=== PATIENT | female | born 1955 | race American Indian/Alaskan Native ===

== ENCOUNTER 2017-06-03 11:29 | Emergency (ER) | payer MEDICARE, BC ==
[2017-06-03] MEDS ORDERED: Lidocaine 2% 20 ML MDV INFILT ONE (12:21)
[2017-06-03] MEDS ORDERED: fentaNYL 100 MCG/2 ML SDV IM ONE (12:59)
--- NOTE | 2017-06-03 13:03 | EDM.PDOC ---
ED HPI GENERAL MEDICAL PROBLEM - General Chief Complaint: Laceration Stated Complaint: LACERATION Time Seen by Provider: 06/03/17 12:00 Source of Information: Reports: Patient History Limitations: Reports: No Limitations - History of Present Illness INITIAL COMMENTS - FREE TEXT/NARRATIVE: Stepped backwards and tripped landing on bed frame. C/o pain and bleeding R buttock. Was able to ambulate, has family with her who drives and can watch her. 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 - Related Data Allergies Allergy/AdvReac Type Severity Reaction Status Date / Time morphine AdvReac Nausea and Verified 06/03/17 11:48 Vomiting environmental Allergy Cannot Uncoded 06/03/17 11:48 Remember Home Meds: Home Meds Amitriptyline [Elavil] 50 mg PO BEDTIME 07/08/14 [History] Ascorbic Acid [Vitamin C] 500 mg PO DAILY 07/08/14 [History] Aspirin [Halfprin] 81 mg PO DAILY 07/08/14 [History] Calcium Carb & Citrate/Vit D3 [Calcium + Vitamin D3 Caplet] 1 tab PO DAILY 07/08 [History] Cyanocobalamin (Vitamin B12) [Vitamin B12] 250 mcg PO BID 07/08/14 [History] Ferrous Sulfate 325 mg PO TIDM 07/08/14 [History] Multivitamin with Minerals [Multiple Vitamin] 1 tab PO DAILY 07/08/14 [History] Vitamin B Complex [B Complex] 1 tab PO DAILY 07/08/14 [History] fentaNYL [Duragesic] 50 mcg TD Q72H 07/08/14 [History] oxyCODONE HCl/Acetaminophen [Percocet 10-325 MG] 1 tab PO Q6HR PRN 07/08/14 [ History] traMADol [Ultram] 100 mg PO Q6H PRN 07/08/14 [History] 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: Musculoskeletal History: Reports: Back Pain, Chronic, Osteoarthritis Hematologic History: Reports: Iron Deficiency Other Hematologic History: from bariatric procedure Oncologic (Cancer) History: Reports: Breast Other Oncologic History: 2003, right side with mastectomy - Past Surgical History GI Surgical History: Reports: Bariatric Procedure Other GI Surgeries/Procedures: Bariatric surgery 2003 Musculoskeletal Surgical History: Reports: Other (See Below) Other Musculoskeletal Surgeries/Procedures:: 6 back surgeries, bone chip and discs bulging 2005 last surgery Social & Family History - Tobacco Use Smoking Status *Q: Former Smoker Years of Tobacco use: 5 Used Tobacco, but Quit: Yes Month Tobacco Last Used: 1984 - Caffeine Use Caffeine Use: Reports: Coffee - Alcohol Use Days Per Week of Alcohol Use: 0 - Recreational Drug Use Recreational Drug Use: No ED ROS GENERAL - Review of Systems Review Of Systems: ROS reveals no pertinent complaints other than HPI. ED EXAM, SKIN/RASH Exam: See Below Exam Limited By: No Limitations General Appearance: Alert, WD/WN, Anxious Back Exam: Normal Inspection Extremities: Normal Inspection, Normal Range of Motion, Non-Tender, Normal Capillary Refill Skin: Wound/Incision Comments: triagular laceration over R buttock with tense 10x10 cm hematoma palpable below. Normal hip ROM. No e/o buttock compartment syndrome or deeper injury. ED SKIN PROCEDURES - Laceration/Wound Repair Buttock Lac/Wound length In cm: 2 Appearance: Subcutaneous, Irregular, Clean Distal NVT: Neuro & Vascular Intact Anesthetic Type: Local Local Anesthesia - Lidocaine (Xylocaine): 2% Plain Local Anesthetic Volume: Other (10 ml) Skin Prep: Chlorhexidine (Hibiciens) Exploration/Debridement/Repair: Wound Explored, In a Bloodless Field, Explored to Base, Minimal Debridement, Moderately Undermined, No Foreign Material Found, Multiple Flaps Aligned, Other (skin edges of triagle approx w/ single loose horizontal mattress) Closed with: Sutures Suture Size: 4-0 # of Sutures: 1 Suture Type: Prolene Progress/Comments: copiously irrigated with 120ml NS Course - Vital Signs Last Recorded V/S: Last Vital Signs Temp 36.4 C 06/03/17 11:47 Pulse 88 06/03/17 11:47 Resp 16 06/03/17 11:47 BP 165/92 H 06/03/17 11:47 Pulse Ox 96 06/03/17 11:47 - Orders/Labs/Meds Meds: Medications Discontinued Medications Generic Name Dose Route Start Last Admin Trade Name Freq PRN Reason Stop Dose Admin Acetaminophen 1,000 mg 06/03/17 13:04 06/03/17 13:27 Tylenol Extra Strength PO 06/03/17 13:05 1,000 mg ONETIME ONE Administration Fentanyl 50 mcg 06/03/17 12:59 06/03/17 13:21 Sublimaze IM 06/03/17 13:00 50 mcg ONETIME ONE Administration Lidocaine HCl 20 ml 06/03/17 12:21 06/03/17 13:28 Xylocaine 2% INFILT 06/03/17 12:22 20 ml ONETIME ONE Administration Departure - Departure Time of Disposition: 14:27 Disposition: Home, Self-Care 01 Condition: Good Clinical Impression: Buttock wound, Buttock trauma, Hematoma - Discharge Information Referrals: Katherin Nielsen RN [Primary Care Provider] - Forms: ED Department Discharge Care Plan Goals: Needs close follow up with Dr. Chaney due to risk of infection. Oxycodone 5-10mg q4h cephalexin 500mg qid Acetaminophen 650 mg qid Wash wound with soap and water every day. Return to ED if signs of infection. Call your Physician or Return to Emergency Department if: * Your condition worsens in any way. * You develop fever greater than 100.4. * You have vomitting due to oxycodone or antibiotics * You have pain that is not controlled with medications.
[2017-06-03] MEDS ORDERED: Acetaminophen 500 MG Tab PO ONE (13:04)
[2017-06-03 15:19] VITALS: BP 159/74
== END 2017-06-03 15:20 | disposition home or self-care (01) ==
LOC: JP.ED 11:29
DX: S31.811A Laceration without foreign body of right buttock, initial encounter (principal); M19.90 Unspecified osteoarthritis, unspecified site; Z98.890 Other specified postprocedural states; Z98.84 Bariatric surgery status; Z87.891 Personal history of nicotine dependence; Z79.899 Other long term (current) drug therapy; Z88.5 Allergy status to narcotic agent; Z91.09 Other allergy status, other than to drugs and biological substances; W22.8XXA Striking against or struck by other objects, initial encounter
CPT/HCPCS: 12001; 99283; A9270; J3010

== ENCOUNTER → 2017-06-15 | Day surgery (SDC) | payer MEDICARE, BC ==
[~2017-06-15] MED LIST: Acetaminophen/HYDROcodone 325-5 MG Tab PO PRN; Bupivacaine 0.5% 50 ML MDV ONE; Ketorolac 60 MG/2 ML SDV ONE; Lidocaine 1% with EPINEPHrine 1:100,000 50 ML MDV ONE; Midazolam 1 MG/ML 2 ML SDV ONE; Propofol 200 MG/20 ML SDV ONE; Sodium Chloride 0.9% 1,000 ML IV SCH; ceFAZolin 2 GM in Sodium Chloride 0.9% 50 ML IV ONE; fentaNYL 100 MCG/2 ML SDV ONE
[2017-06-15 15:52] VITALS: BP 146/80
--- NOTE | 2017-06-16 09:11 | OR ---
DATE OF PROCEDURE: 06/15/2017 PROCEDURE: 1. Hematoma evacuation, left buttock. 2. Debridement of wound ([id number]), 2 cm x 1.8 cm with a depth of 9.5 cm. COMPLICATIONS: None. RESEARCH AND DEVELOPMENT ENGINEER: None. ANESTHESIA: MAC/local. RISKS: Risks, benefits, alternatives, and limitations including, but not limited to infection, bleeding, injury to musculoskeletal structures were explained to the patient and they wished to proceed. PROCEDURE IN DETAIL: The patient was placed in lateral decubitus position. The previous area that was sutured was opened and debrided with a 15 blade. The hematoma was then entered and a large amount of old clot was able to be suctioned from the site. This was thoroughly irrigated. After the clot was removed, this was packed with quarter-inch iodoform gauze. The patient tolerated the procedure well. Carlos Aponte MD /[id number]
== END ==
LOC: JP.SDS 11:26
PROVIDERS: ATTEND Surgery
DX: S30.0XXA Contusion of lower back and pelvis, initial encounter (principal); S31.819S Unspecified open wound of right buttock, sequela
CPT/HCPCS: 10140; 11042; 36415; 80048; 85027; A9270; J0690; J1885; J2250; J2704; J3010; J7040; J7050; 76881-26-RT; 76881-RT

== ENCOUNTER 2019-02-04 15:04 | Day surgery (SDC) | payer BC, MEDICARE ==
[2019-02-04] MEDS ORDERED: fentaNYL 100 MCG/2 ML SDV IM ONE (15:36)
--- NOTE | 2019-02-04 15:39 | EDM.PDOC ---
ED HPI GENERAL MEDICAL PROBLEM - General Chief Complaint: Upper Extremity Injury/Pain Stated Complaint: RIGHT ARM BROKEN Time Seen by Provider: 02/04/19 15:30 Source of Information: Reports: Patient, Family, RN Notes Reviewed History Limitations: Reports: No Limitations - History of Present Illness INITIAL COMMENTS - FREE TEXT/NARRATIVE: 63-year-old female presents emergency department today following a fall on outstretched hand just prior to presentation. She has obvious deformity and is in significant pain right wrist - Related Data Allergies Allergy/AdvReac Type Severity Reaction Status Date / Time morphine AdvReac Nausea and Verified 02/04/19 15:55 Vomiting environmental Allergy Cannot Uncoded 02/04/19 15:55 Remember Home Meds: Home Meds Amitriptyline [Elavil] 50 mg PO BEDTIME 07/08/14 [History] Ascorbic Acid [Vitamin C] 500 mg PO DAILY 07/08/14 [History] Aspirin [Halfprin] 81 mg PO DAILY 07/08/14 [History] Calcium Carb & Citrate/Vit D3 [Calcium + Vitamin D3 Caplet] 1 tab PO DAILY 07/08 [History] Cyanocobalamin (Vitamin B12) [Vitamin B12] 250 mcg PO BID 07/08/14 [History] Ferrous Sulfate 325 mg PO TIDM 07/08/14 [History] Multivitamin with Minerals [Multiple Vitamin] 1 tab PO DAILY 07/08/14 [History] Vitamin B Complex [B Complex] 1 tab PO DAILY 07/08/14 [History] Celecoxib 100 mg PO BID 02/04/19 [History] Lisinopril 10 mg PO DAILY 02/04/19 [History] Past Medical History HEENT History: Reports: Impaired Vision 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: Reports: Musculoskeletal History: Reports: Back Pain, Chronic, Osteoarthritis Hematologic History: Reports: Iron Deficiency Other Hematologic History: from bariatric procedure Oncologic (Cancer) History: Reports: Breast Other Oncologic History: 2003, right side with mastectomy - Infectious Disease History Infectious Disease History: Reports: Chicken Pox, Measles, Mumps - Past Surgical History HEENT Surgical History: Reports: None GI Surgical History: Reports: Bariatric Procedure Other GI Surgeries/Procedures: Bariatric surgery 2004 Musculoskeletal Surgical History: Reports: Other (See Below) Other Musculoskeletal Surgeries/Procedures:: 6 back surgeries, bone chip and discs bulging 2004 last surgery Social & Family History - Caffeine Use Caffeine Use: Reports: Coffee, Tea Review of Systems - Review of Systems Review Of Systems: See Below Musculoskeletal: Reports: Joint Pain (Wrist pain) Skin: Reports: Bruising, Other (Edema) Neurological: Reports: No Symptoms ED EXAM, GENERAL - Physical Exam Exam: See Below Free Text/Narrative:: Examination the right wrist she does have an obvious deformity at the wrist pedal pulses +2 she has limited range of motion of digits 1 through 5 secondary to pain Exam Limited By: No Limitations General Appearance: Alert, WD/WN, No Apparent Distress Course - Vital Signs Last Recorded V/S: Last Vital Signs Temp 97.3 F 02/04/19 15:59 Pulse 101 H 02/04/19 15:59 Resp 17 02/04/19 15:59 BP 165/94 H 02/04/19 15:59 Pulse Ox 95 02/04/19 15:59 - Orders/Labs/Meds Orders: Active Orders 24 hr Category Date Time Status Peripheral IV Care [RC] . DIRECTED Care 02/04/19 16:15 Active BASIC METABOLIC PANEL,BMP [CHEM] Urgent Lab 02/04/19 16:40 Received Sodium Chloride 0.9% [Normal Saline] 1,000 ml Med 02/04/19 16:15 Active IV ASDIRECTED Sodium Chloride 0.9% [Saline Flush] Med 02/04/19 16:14 Active 10 ml FLUSH ASDIRECTED PRN Peripheral IV Insertion Adult [OM.PC] Urgent Oth 02/04/19 16:14 Ordered Medication Orders Sodium Chloride (Normal Saline) 1,000 mls @ 125 mls/hr IV ASDIRECTED DUNIA Last Admin: 02/04/19 16:31 Dose: 125 mls/hr Sodium Chloride (Saline Flush) 10 ml FLUSH ASDIRECTED PRN PRN Reason: Keep Vein Open Labs: Laboratory Tests 02/04/19 Range/Units 16:40 WBC 7.8 (4.5-11.0) K/uL RBC 3.62 (3.30-5.50) M/uL Hgb 11.6 L (12.0-15.0) g/dL Hct 35.9 L (36.0-48.0) % MCV 99 H (80-98) fL MCH 32 H (27-31) pg MCHC 32 (32-36) % Plt Count 421 H (150-400) K/uL Neut % (Auto) 75 H (36-66) % Lymph % (Auto) 18 L (24-44) % [place] % (Auto) 6 (2-6) % Eos % (Auto) 1 L (2-4) % Baso % (Auto) 0 (0-1) % Meds: Medications Generic Name Dose Route Start Last Admin Trade Name Freq PRN Reason Stop Dose Admin Sodium Chloride 1,000 mls @ 125 mls/hr 02/04/19 16:15 02/04/19 16:31 Normal Saline IV 125 mls/hr ASDIRECTED DUNIA Administration Sodium Chloride 10 ml 02/04/19 16:14 Saline Flush FLUSH ASDIRECTED PRN Keep Vein Open Discontinued Medications Generic Name Dose Route Start Last Admin Trade Name Freq PRN Reason Stop Dose Admin Fentanyl 50 mcg 02/04/19 15:36 02/04/19 15:57 Sublimaze IM 02/04/19 15:37 50 mcg ONETIME ONE Administration Fentanyl 50 mcg 02/04/19 16:16 02/04/19 16:36 Sublimaze IVPUSH 02/04/19 16:17 50 mcg ONETIME ONE Administration Departure - Departure Time of Disposition: 16:52 Disposition: Still A Patient 30 Condition: Fair Clinical Impression: Fracture of radius, distal, right, closed Qualifiers: Encounter type: initial encounter Fracture morphology: other fracture Qualified Code(s): S52.591A - Other fractures of lower end of right radius, initial encounter for closed fracture - Discharge Information Referrals: PCP,None [Primary Care Provider] - Forms: ED Department Discharge - My Orders Last 24 Hours: My Active Orders 02/04/19 16:14 Sodium Chloride 0.9% [Saline Flush] 10 ml FLUSH ASDIRECTED PRN Peripheral IV Insertion Adult [OM.PC] Urgent 02/04/19 16:15 Peripheral IV Care [RC] . DIRECTED Sodium Chloride 0.9% [Normal Saline] 1,000 ml IV ASDIRECTED 02/04/19 16:40 BASIC METABOLIC PANEL,BMP [CHEM] Urgent - Assessment/Plan Last 24 Hours: My Active Orders 02/04/19 16:14 Sodium Chloride 0.9% [Saline Flush] 10 ml FLUSH ASDIRECTED PRN Peripheral IV Insertion Adult [OM.PC] Urgent 02/04/19 16:15 Peripheral IV Care [RC] . DIRECTED Sodium Chloride 0.9% [Normal Saline] 1,000 ml IV ASDIRECTED 02/04/19 16:40 BASIC METABOLIC PANEL,BMP [CHEM] Urgent Plan: Assessment Acuity = acute Site and laterality = right radial fracture displacement complete closed Etiology secondary to fall on outstretched hand nifestations =pain Location of injury = Home Lab value = x-ray describes a fracture above Plan Called discussed case with Dr. Hull orthopedics at 16:10 Kindly agreed to come and evaluate the patient emergency department I did contact anesthesia as well for potential reduction then plan for surgical fixation This note was dictated using [employer] voice recognition software please call with any questions on syntax or grammar.
[2019-02-04] MEDS ORDERED: Sodium Chloride 0.9% 10 ML Syringe FLUSH PRN (16:14)
[2019-02-04] MEDS ORDERED: Sodium Chloride 0.9% 1,000 ML IV SCH (16:15)
[2019-02-04] MEDS ORDERED: fentaNYL 100 MCG/2 ML SDV IVPUSH ONE (16:16)
--- NOTE | 2019-02-04 16:24 | CRLCR ---
Indication: Fall. Pain Technique: Two views of the right wrist Comparison: None available Findings/Impression: Bones: A comminuted, displaced fracture of the distal radial metaphysis with dorsal displacement of the distal fracture fragment. A fracture of the distal ulna with displacement. A mild chronic deformity of the mid 5th metacarpal. No gross dislocation. Joint spaces: Unremarkable. Soft tissues: Distal forearm and wrist soft tissue swelling. Dictated by Quinton Fay MD @ 02/04/2019 4:22:28 PM Dictated by: Quinton Fay MD @ 02/04/2019 16:22:34 (Electronically Signed)
[2019-02-04] MEDS ORDERED: fentaNYL 250 MCG/5 ML SDV ONE ×2 (16:59→18:01)
[2019-02-04] MEDS ORDERED: Neostigmine Methylsulfate 1 MG/ML 5 ML Syringe ONE (17:00)
[2019-02-04] MEDS ORDERED: Glycopyrrolate 0.2 MG/ML 5 ML MDV ONE (17:00)
[2019-02-04] MEDS ORDERED: Rocuronium 50 MG/5 ML Vial ONE (17:00)
[2019-02-04] MEDS ORDERED: Ondansetron 4 MG/2 ML SDV ONE (17:00)
[2019-02-04] MEDS ORDERED: Dexamethasone 4 MG/ML SDV ONE (17:00)
[2019-02-04] MEDS ORDERED: Propofol 200 MG/20 ML SDV ONE (17:02)
--- NOTE | 2019-02-04 17:12 | PCM.HP ---
H&P History of Present Illness - General Date of Service: 02/04/19 Admit Problem/Dx: Admission Diagnosis/Problem Admission Diagnosis/Problem Fracture dislocation of right wrist Source of Information: Patient, Old Records History Limitations: Reports: No Limitations - History of Present Illness Initial Comments - Free Text/Narative: 63 year old right hand dominant female fell [place] this [place]. Landed on outstretched right arm. Presented to the ED with obvious deformity of the right wrist. X-rays show dorsally displaced distal radius and angulated distal ulna. Wrist was reduced in the ED under sedation and plan to take to the OR for ORIF. Onset of Symptoms: Reports: Today, Sudden Symptom Onset Date: 02/04/19 Symptom Onset Time: 01:30 Location: Reports: Upper Extremity, Right Severity: Severe Associated Symptoms: Reports: No Other Symptoms - Related Data Allergies/Adverse Reactions: Allergies Allergy/AdvReac Type Severity Reaction Status Date / Time morphine AdvReac Nausea and Verified 02/04/19 15:55 Vomiting environmental Allergy Cannot Uncoded 02/04/19 15:55 Remember Home Medications: Home Meds Amitriptyline [Elavil] 50 mg PO BEDTIME 07/08/14 [History] Ascorbic Acid [Vitamin C] 500 mg PO DAILY 07/08/14 [History] Aspirin [Halfprin] 81 mg PO DAILY 07/08/14 [History] Calcium Carb & Citrate/Vit D3 [Calcium + Vitamin D3 Caplet] 1 tab PO DAILY 07/08 [History] Cyanocobalamin (Vitamin B12) [Vitamin B12] 250 mcg PO BID 07/08/14 [History] Ferrous Sulfate 325 mg PO TIDM 07/08/14 [History] Multivitamin with Minerals [Multiple Vitamin] 1 tab PO DAILY 07/08/14 [History] Vitamin B Complex [B Complex] 1 tab PO DAILY 07/08/14 [History] Celecoxib 100 mg PO BID 02/04/19 [History] Lisinopril 10 mg PO DAILY 02/04/19 [History] Past Medical History HEENT History: Reports: Impaired Vision 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: Musculoskeletal History: Reports: Back Pain, Chronic, Osteoarthritis Hematologic History: Reports: Iron Deficiency Other Hematologic History: from bariatric procedure Oncologic (Cancer) History: Reports: Breast Other Oncologic History: 2003, right side with mastectomy - Infectious Disease History Infectious Disease History: Reports: Chicken Pox, Measles, Mumps - Past Surgical History HEENT Surgical History: Reports: None GI Surgical History: Reports: Bariatric Procedure Other GI Surgeries/Procedures: Bariatric surgery 2003 Musculoskeletal Surgical History: Reports: Other (See Below) Other Musculoskeletal Surgeries/Procedures:: 6 back surgeries, bone chip and discs bulging 2004 last surgery Social & Family History - Tobacco Use Smoking Status *Q: Never Smoker - Caffeine Use Caffeine Use: Reports: Coffee, Tea - Recreational Drug Use Recreational Drug Use: No H&P Review of Systems - Review of Systems: Review Of Systems: ROS reveals no pertinent complaints other than HPI. Exam - Exam Exam: See Below - Vital Signs Vital Signs: Last Vital Signs Temp 36.3 C 02/04/19 15:59 Pulse 101 H 02/04/19 15:59 Resp 17 02/04/19 15:59 BP 165/94 H 02/04/19 15:59 Pulse Ox 95 02/04/19 15:59 Weight: 59.874 kg - Exam General: Alert, Oriented, 4 HEENT: PERRLA, Hearing Intact, Mucosa Moist & Soquel, Nares Patent, Normal Nasal Septum, Posterior Pharynx Clear, Conjunctiva Clear, EOMI, EACs Clear, TMs Clear Neck: Supple, Trachea Midline, 2 Lungs: Clear to Auscultation, Normal Respiratory Effort Cardiovascular: Regular Rate, Regular Rhythm GI/Abdominal Exam: Normal Bowel Sounds, Soft, Non-Tender, No Organomegaly, No Distention, No Abnormal Bruit, No Mass, Pelvis Stable (Female) Exam: Deferred Rectal (Female) Exam: Deferred Back Exam: Normal Inspection, Full Range of Motion, NT Peripheral Pulses: 2+: Radial (L), Radial (R) Skin: Warm, Dry, Intact Neurological: Cranial Nerves Intact, Reflexes Equal Bilateral Neuro Extensive - Mental Status: Alert, Oriented x3, Normal Mood/Affect, Normal Cognition Neuro Extensive - Motor, Sensory, Reflexes: CN II-XII Intact, Normal Gait, Normal Reflexes Psychiatric: Alert, Normal Affect, Normal Mood Physical Exam Comments:: Right wrist dorsally angulated, sensation intact with some tingling, cap refill brisk, no skin lacerations or abrasions. - Patient Data Lab Results Last 24 hrs: Laboratory Results - last 24 hr 02/04/19 02/04/19 Range/Units 16:40 16:40 WBC 7.8 (4.5-11.0) K/uL RBC 3.62 (3.30-5.50) M/uL Hgb 11.6 L (12.0-15.0) g/dL Hct 35.9 L (36.0-48.0) % MCV 99 H (80-98) fL MCH 32 H (27-31) pg MCHC 32 (32-36) % Plt Count 421 H (150-400) K/uL Neut % (Auto) 75 H (36-66) % Lymph % (Auto) 18 L (24-44) % [place] % (Auto) 6 (2-6) % Eos % (Auto) 1 L (2-4) % Baso % (Auto) 0 (0-1) % Sodium 143 (140-148) mmol/L Potassium 3.8 (3.6-5.2) mmol/L Chloride 106 (100-108) mmol/L Carbon Dioxide 31 (21-32) mmol/L Anion Gap 6.4 (5.0-14.0) mmol/L BUN 16 (7-18) mg/dL Creatinine 0.7 (0.6-1.0) mg/dL Est Cr Clr Drug Dosing 70.11 mL/min Estimated GFR (MDRD) > 60 (>60) Glucose 152 H (74-106) mg/dL Calcium 8.7 (8.5-10.1) mg/dL Result Diagrams: 02/04/19 16:40 02/04/19 16:40 - Problem List (1) Fracture of distal ulna SNOMED Code(s): 435106177 ICD Code: S52.609A - UNSP FRACTURE OF LOWER END OF UNSP ULNA, INIT FOR CLOS FX Status: Acute Current Visit: Yes Qualifiers: Encounter type: initial encounter Fracture type: closed Fracture morphology: unspecified fracture morphology Laterality: right Qualified Code (s): S52.601A - Unspecified fracture of lower end of right ulna, initial encounter for closed fracture (2) Fracture of radius, distal, right, closed SNOMED Code(s): 91605715 ICD Code: S52.501A - UNSP FRACTURE OF THE LOWER END OF RIGHT RADIUS, INIT Status: Acute Current Visit: Yes Qualifiers: Encounter type: initial encounter Fracture morphology: other fracture Qualified Code(s): S52.591A - Other fractures of lower end of right radius, initial encounter for closed fracture Problem List Initiated/Reviewed/Updated: Yes Orders Last 24hrs: Active Orders 24 hr Category Date Time Status Patient Status [ADT] Routine ADT 02/04/19 16:53 Active Peripheral IV Care [RC] . DIRECTED Care 02/04/19 16:15 Active Verify Patient Consent Obtain [RC] ASDIRECTED Care 02/04/19 17:05 Ordered NPO [Nothing Per Oral Diet] [DIET] Diet 02/05/19 Breakfast Ordered Sodium Chloride 0.9% [Normal Saline] 1,000 ml Med 02/04/19 16:15 Active IV ASDIRECTED Sodium Chloride 0.9% [Saline Flush] Med 02/04/19 16:14 Active 10 ml FLUSH ASDIRECTED PRN ceFAZolin [Ancef] 1 gm Med 02/04/19 17:06 Ordered Premix Bag 1 bag IV ONETIME Peripheral IV Insertion Adult [OM.PC] Urgent Oth 02/04/19 16:14 Ordered Medication Orders Sodium Chloride (Normal Saline) 1,000 mls @ 125 mls/hr IV ASDIRECTED DUNIA Last Admin: 02/04/19 16:31 Dose: 125 mls/hr Sodium Chloride (Saline Flush) 10 ml FLUSH ASDIRECTED PRN PRN Reason: Keep Vein Open Assessment/Plan Comment:: Displaced, unstable right distal radius fracture and angulated distal ulna fracture. Plan Open Reduction and Internal Fixation Right distal radius and possible fixation of distal ulna. Plan was discussed with the patient and her . Both agree to proceed.
[2019-02-04] MEDS ORDERED: ceFAZolin 1 GM in Premix Bag 1 BAG IV ONE (17:15)
[2019-02-04] MEDS ORDERED: Bupivacaine 0.5% 30 ML SDV ONE (17:16)
[2019-02-04] MEDS ORDERED: hydrOXYzine HCl 100 MG/2 ML SDV IM ONE (18:54)
[2019-02-04] MEDS ORDERED: hydrOXYzine HCl 100 MG/2 ML SDV ONE (18:59)
[2019-02-04] MEDS ORDERED: Acetaminophen/HYDROcodone 325-5 MG Tab PO ONE (19:53)
[2019-02-04 20:40] VITALS: BP 172/74
--- NOTE | 2019-02-05 14:40 | OR ---
DATE OF PROCEDURE: 02/04/2019 PREOPERATIVE DIAGNOSES: Displaced right distal radius fracture and angulated ulnar neck fracture. POSTOPERATIVE DIAGNOSES: Displaced right distal radius fracture and angulated right distal ulnar neck fracture. PROCEDURE: Open reduction and internal fixation, right distal radius. ANESTHESIA: General. INDICATIONS: Marcia is a 63-year-old female who sustained a [place], landing onto her right outstretched arm. She presented to the emergency room with obvious deformity of the wrist. She underwent closed reduction of the wrist in the emergency room and was taken later to the operating room for open reduction and internal fixation of fracture. Risks, benefits, and potential complications of the procedure were discussed. DESCRIPTION OF PROCEDURE: After adequate general anesthesia was obtained, the patient was placed supine with a tourniquet about the right upper arm. Right arm was prepped and draped in a sterile fashion. Arm was exsanguinated and tourniquet inflated to 200 mmHg. A longitudinal incision was made over the volar aspect of the wrist and angulated slightly across the flexion crease, towards the radial styloid. This was carried down through the subcutaneous tissues. A plane was developed adjacent to the palmaris longus, and the median nerve was protected. This was carried down through the subcutaneous tissues, and the fracture was identified. Self-retaining retractor was placed. Soft tissues were cleared from the fracture. Fracture was reduced under direct visualization and confirmed with fluoroscopy. A Synthes narrow volar locking plate was then secured with 3 cortical screws proximally and locking screws distally. Placement of the screws was confirmed using fluoroscopy. The ulnar fracture was evaluated and found to be aligned and a decision was made not to proceed with any internal fixation of this. Wound was irrigated. Skin was then closed with 2-0 Vicryl and Steri-Strips were applied. It was then infiltrated with 0.5% Marcaine. Sterile dressings and a well-padded volar splint were then applied. The patient tolerated the procedure well. There were no complications. She was taken from the operating room in a stable condition. Cesar Hull MD /[id number]
== END 2019-02-04 20:30 | disposition home or self-care (01) ==
LOC: JP.ED 15:04 → JP.SDS 17:40
PROVIDERS: ATTEND Specialist
DX: S52.591A Other fractures of lower end of right radius, initial encounter for closed fracture (principal); S52.691A Other fracture of lower end of right ulna, initial encounter for closed fracture; E11.9 Type 2 diabetes mellitus without complications; D64.9 Anemia, unspecified; M19.90 Unspecified osteoarthritis, unspecified site; W19.XXXA Unspecified fall, initial encounter; Y92.821 Forest as the place of occurrence of the external cause; Z88.5 Allergy status to narcotic agent; Z79.82 Long term (current) use of aspirin; Z79.899 Other long term (current) drug therapy
CPT/HCPCS: 25605; 25609; 36415; 73100; 80048; 85025; 96361; 96365; 96372; 96375; 99283; 99284; A9270; C1713; J0690; J1100; J2405; J2704; J2710; J3010; J3410; J3490; J7030

== ENCOUNTER 2021-03-31 05:30 | Day surgery (SDC) | payer MEDICARE ==
[2021-03-31] MEDS ORDERED: Lactated Ringers 1,000 ML IV SCH (06:30)
[2021-03-31] MEDS ORDERED: Nozin Nasal Sanitizer NASBOTH ONE (07:00)
[2021-03-31] MEDS ORDERED: Bupivacaine 0.5% 30 ML SDV ONE ×2 (07:03→07:12)
[2021-03-31] MEDS ORDERED: fentaNYL 100 MCG/2 ML SDV ONE ×3 (07:12→08:58)
[2021-03-31] MEDS ORDERED: Propofol 200 MG/20 ML SDV ONE ×3 (07:12→09:15)
[2021-03-31] MEDS ORDERED: Midazolam 1 MG/ML 2 ML SDV ONE (07:12)
[2021-03-31] MEDS ORDERED: ceFAZolin 2 GM in Premix Bag 1 BAG IV ONE (07:30)
[2021-03-31] MEDS ORDERED: Lactated Ringers 1,000 ML ONE (09:15)
[2021-03-31 11:07] VITALS: BP 165/76; PULSE 61
--- NOTE | 2021-04-19 14:17 | OR ---
DATE OF PROCEDURE: 03/31/2021 SURGEON: Cesar Hull MD PREOPERATIVE DIAGNOSIS: Full-thickness tear of right rotator cuff. POSTOPERATIVE DIAGNOSES: 1. Full-thickness tear of right rotator cuff. 2. Biceps tendinopathy. 3. Partial subscapularis tear. PROCEDURES PERFORMED: Arthroscopy of right shoulder with subacromial decompression and repair of rotator cuff. WEB ART DIRECTOR: MARCOS Hahn ANESTHESIA: Interscalene block with sedation. INDICATIONS: Marcia is a 65-year-old female with a history of persistent and progressive pain in her right shoulder for the past several months. Examination and imaging are consistent with a full-thickness rotator cuff tear with some retraction. She is now taken to the operating room for repair of right rotator cuff. Risks, benefits, and potential complications of the procedure were discussed. The services of the physician residential assistant were utilized as housekeeper/laundry assistant for placement of suture anchors and suture management during the case. DESCRIPTION OF PROCEDURE: After adequate anesthesia was obtained, the patient was placed in the lateral decubitus position and secured with the beanbag positioner. The right shoulder and arm were prepped and draped in a sterile fashion. 10 pounds of traction was placed in shoulder traction unit. A standard posterior portal was established, and the scope was introduced. The glenohumeral joint showed minimal degenerative change with intact articular cartilage. No labral tear. Biceps tendon showed significant tendinopathy, but no tear. Subscapularis showed partial tear on its superior aspect which incorporated only about 15% of this tendon. Anterior portal was established. The biceps tendon was further evaluated pulling this into the joint, revealing only mild tendinopathy into the groove. Full- thickness tear of the supraspinous and portion of the infraspinatus noted with significant fraying. Edges of the subscapularis tear were debrided, and a single suture was placed using a curved suture passer, closing the tear in a [id number] fashion using FiberWire suture. The scope was then removed and placed in the subacromial space. This showed significant fraying of the rotator cuff with a full-thickness L-shaped tear. Moderate impingement was noted. Undersurface of the acromion was cleared of soft tissue, and the coracoacromial ligament was released. A tena was utilized to remove the anterolateral edge of the acromion, bevelling this medially and posteriorly, removing 4 to 5 mm from the undersurface of the acromion. The extent of the tear was delineated. The bursa was cleared for visualization, and the edges of the tear were lightly debrided, removing all frayed tissue. The corner of the L-shaped tear which was torn from anteriorly was grasped and could be mobilized out into position over the tuberosity footprint. The footprint was decorticated with a tena. Two Mitek Healix anchors were placed. Sutures were passed through the tendon and tied. One set of each of the sutures in the anterior portion was selected and placed through a knotless anchor which was secured into the tuberosity laterally, providing a suture bridge double row repair. The arm was taken through internal and external rotation and abduction, and the repair was found to be stable. Level of the acromioplasty was adequate, and no other abnormalities were identified. The port sites were closed in a standard fashion. Steri-Strips were applied with a sterile dressing. The patient tolerated the procedure well. There were no complications. She was taken from the operating room in stable condition. Cesar Hull MD /[id number]
== END 2021-03-31 11:55 | disposition home or self-care (01) ==
LOC: JP.SDS 05:30
PROVIDERS: ATTEND Specialist
DX: M75.121 Complete rotator cuff tear or rupture of right shoulder, not specified as traumatic (principal); M75.51 Bursitis of right shoulder; G89.29 Other chronic pain; E11.9 Type 2 diabetes mellitus without complications; I10 Essential (primary) hypertension; Z88.5 Allergy status to narcotic agent; Z98.890 Other specified postprocedural states; Z79.899 Other long term (current) drug therapy; Z79.84 Long term (current) use of oral hypoglycemic drugs; Z79.82 Long term (current) use of aspirin; Z87.891 Personal history of nicotine dependence
CPT/HCPCS: 29826; 29827; A9270; C1713; J0690; J2250; J2704; J3010; J3490; J7120

== ENCOUNTER 2021-06-02 06:51 | Day surgery (SDC) | payer MEDICARE ==
[2021-06-02] MEDS ORDERED: fentaNYL 100 MCG/2 ML SDV ONE ×3 (07:24→10:45)
[2021-06-02] MEDS ORDERED: Midazolam 1 MG/ML 2 ML SDV ONE (07:24)
[2021-06-02] MEDS ORDERED: Bupivacaine 0.5% 30 ML SDV ONE ×2 (07:25→09:35)
[2021-06-02] MEDS ORDERED: Propofol 200 MG/20 ML SDV ONE ×3 (07:25→10:24)
[2021-06-02] MEDS ORDERED: Nozin Nasal Sanitizer NASBOTH ONE (08:00)
[2021-06-02] MEDS ORDERED: Lactated Ringers 1,000 ML IV SCH (08:00)
[2021-06-02] MEDS ORDERED: ceFAZolin 2 GM in Premix Bag 1 BAG IV ONE (08:30)
[2021-06-02] MEDS ORDERED: Lactated Ringers 1,000 ML ONE (11:01)
[2021-06-02 13:38] VITALS: BP 169/96; PULSE 90
--- NOTE | 2021-06-14 05:04 | OR ---
DATE OF PROCEDURE: 06/02/2021 SURGEON: Cesar Hull MD PREOPERATIVE DIAGNOSIS: Recurrent right rotator cuff tear. POSTOPERATIVE DIAGNOSIS: Recurrent right rotator cuff tear, L-shaped tear with moderate retraction. PROCEDURES: Arthroscopy, right shoulder with repair of rotator cuff. CONDENSER OPERATOR: MARCOS Hahn. ANESTHESIA: Interscalene block with sedation. INDICATIONS: Marcia is a very pleasant 65-year-old female who recently underwent a right rotator cuff repair. She inadvertently lifted a heavy bottle of laundry detergent straining the shoulder and sustaining a recurrent tear. She is therefore brought to the operating room for revision of the repair and possible collagen graft patch. Risks, benefits, potential complications of procedure were discussed. DESCRIPTION OF PROCEDURE: After adequate anesthesia was obtained, the patient was placed in lateral decubitus position and secured with a vasquez bag positioner. Right shoulder and arm were prepped and draped in sterile fashion. 10 pounds of traction was placed in a shoulder traction unit. A standard posterior portal was established. Glenohumeral joint was inspected. This revealed some minor degenerative fraying of the labrum. Articular surface of the humeral head and glenoid were intact. Biceps tendon was intact, as was the subscapularis. Rotator cuff showed a full-thickness tear with sutures in place in the end of the tear. The scope was moved to the subacromial space where the sutures were debrided using combination of a shaver and graspers. The edge of the tendon was debrided with shaver. The superior surface of the greater tuberosity was also debrided down to bleeding bone. Two suture anchors were placed, one more anterior and one slightly posterior. All 4 limbs of the posterior anchors were brought up through the tendon using an Expressew device in a mattress fashion. One set of the anterior pair of sutures were brought up in a mattress fashion and the second one in a simple fashion along the anterior edge. Sutures were then tied down from posterior to anterior. Pairs of sutures were placed through a knotless anchor which was secured into the tuberosity laterally creating a suture bridge and double row repair. A small posterior flap was still present. An additional anchor was placed with 2 simple sutures securing this. Arm was taken through range of motion, internal and external rotation. Fixation was noted to be secure. No additional acromioplasty was done. Shoulder was drained. Scope was withdrawn. Port sites were closed. 3-0 Monocryl and Steri-Strips were applied. Sterile dressing was placed. The patient tolerated procedure well. There were no complications. He was taken from the operating room in a stable condition. Cesar Hull MD /[id number]
== END 2021-06-02 13:40 | disposition home or self-care (01) ==
LOC: JP.SDS 06:51
PROVIDERS: ATTEND Specialist
DX: M75.121 Complete rotator cuff tear or rupture of right shoulder, not specified as traumatic (principal); E66.9 Obesity, unspecified; E11.9 Type 2 diabetes mellitus without complications; G89.29 Other chronic pain; I10 Essential (primary) hypertension; Z88.5 Allergy status to narcotic agent; Z68.22 Body mass index [BMI] 22.0-22.9, adult
CPT/HCPCS: 36415; 80053; 85027; A9270-GY; C1713; J0690; J2250; J2704; J3010; J3490; J7120

== ENCOUNTER 2022-11-22 08:17 | Emergency (ER) | payer MEDICARE ==
[2022-11-22 08:30] VITALS: BP 195/75; PULSE 77
[2022-11-22] MEDS ORDERED: HYDROmorphone 1 MG/ML Syringe IM ONE (08:41)
[2022-11-22] MEDS ORDERED: Ondansetron 4 MG Tab.DIS PO ONE (08:42)
== END 2022-11-22 09:40 | disposition home or self-care (01) ==
LOC: JP.ED 08:17
DX: S00.83XA Contusion of other part of head, initial encounter (principal); S60.211A Contusion of right wrist, initial encounter; I10 Essential (primary) hypertension; E11.9 Type 2 diabetes mellitus without complications; Z88.5 Allergy status to narcotic agent; Z91.09 Other allergy status, other than to drugs and biological substances; Z79.899 Other long term (current) drug therapy; Z79.84 Long term (current) use of oral hypoglycemic drugs; W01.0XXA Fall on same level from slipping, tripping and stumbling without subsequent striking against object, initial encounter
CPT/HCPCS: 70450; 70486; 73110; 73562; 96372; 99284; J1170; Q0162

== ENCOUNTER 2024-09-27 12:35 | Emergency (ER) | payer MEDICARE ==
[2024-09-27 12:54] VITALS: BP 121/79; PULSE 105
== END 2024-09-27 13:15 | disposition left against medical advice (07) ==
LOC: JP.ED 12:35
DX: Z53.21 Procedure and treatment not carried out due to patient leaving prior to being seen by health care provider (principal)

== ENCOUNTER 2025-06-10 19:47 | Emergency (ER) | payer MEDICARE ==
[2025-06-10 20:13] VITALS: BP 121/78; PULSE 97
[2025-06-10] MEDS: fentaNYL 100 MCG/2 ML SDV IM ONE (21:00)
== END 2025-06-10 22:29 | disposition home or self-care (01) ==
LOC: JP.ED 19:47
DX: S00.83XA Contusion of other part of head, initial encounter (principal); S80.01XA Contusion of right knee, initial encounter; S80.02XA Contusion of left knee, initial encounter; I10 Essential (primary) hypertension; E11.9 Type 2 diabetes mellitus without complications; Z88.5 Allergy status to narcotic agent; Z91.09 Other allergy status, other than to drugs and biological substances; Z98.49 Cataract extraction status, unspecified eye; Z98.84 Bariatric surgery status; Z90.49 Acquired absence of other specified parts of digestive tract; Z90.10 Acquired absence of unspecified breast and nipple; Z90.710 Acquired absence of both cervix and uterus; Z79.899 Other long term (current) drug therapy; Z79.84 Long term (current) use of oral hypoglycemic drugs; W01.198A Fall on same level from slipping, tripping and stumbling with subsequent striking against other object, initial encounter; Y92.511 Restaurant or cafe as the place of occurrence of the external cause
CPT/HCPCS: 70450; 70486; 73562; 96372; 99284; J3010